=== PATIENT | male | born 1985 | race African-American/Black ===

== ENCOUNTER 2020-05-26 22:16 | Emergency (ER) | payer BC, OTHER ==
[~2020-05-26] VITALS: Ht 180.3 cm; Wt 65.8 kg
[2020-05-26 22:28] VITALS: BP 132/76
--- NOTE | 2020-05-26 22:41 | NUR ---
PATIENT BIB [employer]. PATIENT EXAMINED BY . PATIENT MEDICALLY CLEARED AND RELEASED IN CUSTODY IN STABLE CONDITION. ORIGINAL PRE-BOOK FORM GIVEN TO OFFICER JAM, #[id number]
== END 2020-05-26 22:41 ==
LOC: MED 22:16
DX: R51.9 Headache, unspecified (principal); Z02.89 Encounter for other administrative examinations; V49.9XXA Car occupant (driver) (passenger) injured in unspecified traffic accident, initial encounter; Y93.89 Activity, other specified; Y92.89 Other specified places as the place of occurrence of the external cause; Y99.8 Other external cause status
CPT/HCPCS: 99283